=== PATIENT | female | born 1960 | race Caucasian/White ===

== ENCOUNTER 2018-04-13 15:00 | Inpatient (IN) | payer OTHER ==
[~2018-04-13] VITALS: Ht 165.1 cm; Wt 68.0 kg
[2018-04-13 15:52] LABS: BASOPHILS # (AUTO) 0.1 /CMM (0.0-0.2); BASOPHILS % (AUTO) 0.9 % (0.0-2.0); EOSINOPHILS % (AUTO) 2.1 % (0.0-6.0); HEMATOCRIT 46 % (33-45); HEMOGLOBIN 15.6 g/dL (11.5-14.8); LYMPHOCYTES # (AUTO) 2.4 /CMM (0.8-4.8); LYMPHOCYTES % (AUTO) 23.8 % (20.0-44.0); MEAN CORPUSCULAR HEMOGLOBIN 30 PG (26.0-33.0); MEAN CORPUSCULAR HGB CONC 34 g/dl (31.0-36.0); MEAN CORPUSCULAR VOLUME 88 fL (82-100); MONOCYTES # (AUTO) 0.9 /CMM (0.1-1.30); MONOCYTES % (AUTO) 8.8 % (2.0-12.0); NEUTROPHILS # (AUTO) 6.6 /CMM (1.8-8.9); NEUTROPHILS % (AUTO) 64.4 % (43.0-81.0); PLATELET COUNT (AUTO) 407 /CMM (150-450); RDW COEFFICIENT OF VARIATION 13.5 (11.5-15.0); RED BLOOD CELL COUNT(AUTO) 5.24 MIL/uL (4.0-5.2); WHITE BLOOD COUNT (AUTO) 10.2 K/uL (4.3-11.0)
[2018-04-13 15:54] LABS: APPEARANCE,URINE Slightly Cloudy (CLEAR); BILIRUBIN,URINE MODERATE (NEGATIVE); BLOOD, URINE Negative Ery/uL (NEGATIVE); COLOR,URINE Yellow (YELLOW); KETONES,URINE 80 (NEGATIVE); LEUKOCYTE ESTERASE ,URINE Negative (NEGATIVE); NITRITE, URINE Negative (NEGATIVE); PH,URINE 5.5 (5.0-8.0); PROTEIN,URINE Trace mg/dl (NEGATIVE); UGLUCOSE Negative (NEGATIVE)
[2018-04-13] MEDS ORDERED: OLAN2.5T3 PO (15:55)
[2018-04-13] MEDS ORDERED: ALPR0.255 PO (15:55)
[2018-04-13] MEDS ORDERED: ESCI10TA PO (15:55)
[2018-04-13] MEDS ORDERED: LORA0.5T PO (15:55)
[2018-04-13] MEDS ORDERED: DONE10TA44 PO (15:55)
[2018-04-13] MEDS ORDERED: MEMA10TA21 PO (15:55)
[2018-04-13 16:04] LABS: CALCIUM, SERUM 10.1 mg/dL (8.5-10.1); CARBON DIOXIDE 27 mmol/L (21-32); CHLORIDE 108 mmol/L (98-107); GLUCOSE 88 mg/dL (74-106); POTASSIUM 4.1 mmol/L (3.5-5.1); SODIUM SERUM 147 mmol/L (136-145); UREA NITROGEN, BLOOD 18 mg/dL (7-18)
[2018-04-13 16:09] LABS: ALANINE AMINOTRANSFERASE 47 U/L (12-78); ALBUMIN 3.9 g/dL (3.4-5.0); ALCOHOL, BLOOD < 3 mg/dL (0-0); ALKALINE PHOSPHATASE 94 U/L (46-116); ASPARTATE AMINOTRANSFERASE 21 U/L (15-37); BILIRUBIN,DIRECT 0.1 mg/dL (0.0-0.2); BILIRUBIN,TOTAL 0.5 mg/dL (0.2-1.0); TOTAL PROTEIN, SERUM 7.9 g/dL (6.4-8.2)
[2018-04-13 16:10] LABS: ACETAMINOPHEN < 2 ug/ml (10-30); SALICYLATE < 2.8 mg/dL (2.8-20.0)
[2018-04-13 16:18] LABS: BACTERIA,URINE Few /HPF (None Seen); RBC,URINE 0-2 /HPF (0-2); SQUAMOUS EPITHELIAL CELL,UR Few /HPF (None Seen); WBC,URINE 0-2 /HPF (0-3)
[2018-04-13] MEDS ORDERED: IV D5/0.45 NACL 1,000 ML IV ONE (16:30)
[2018-04-13] MEDS ORDERED: MAGNESIUM HYDROXIDE 30 ML UDC PO PRN (18:00)
[2018-04-13] MEDS ORDERED: MAG HYDROX/AL HYDROX/SIMETH 30 ML UDC PO PRN (18:00)
[2018-04-13] MEDS ORDERED: LORAZEPAM 0.5 MG TABLET PO PRN (18:00)
[2018-04-13] MEDS ORDERED: ACETAMINOPHEN 325 MG TABLET PO PRN (18:00)
[2018-04-13 18:05] VITALS: BP 141/65
[2018-04-13 18:31] VITALS: BP 141/65
[2018-04-13 20:00] VITALS: BP 139/98
[2018-04-14 08:00] VITALS: BP 126/71
[2018-04-14] MEDS ORDERED: DONE10TA44 PO (08:38)
[2018-04-14] MEDS ORDERED: MEMA10TA21 PO (08:38)
[2018-04-14] MEDS ORDERED: LORAZEPAM 1 MG TABLET PO PRN (11:00)
[2018-04-14 13:01] LABS: BASOPHILS # (AUTO) 0.1 /CMM (0.0-0.2); BASOPHILS % (AUTO) 0.9 % (0.0-2.0); HEMATOCRIT 44 % (33-45); HEMOGLOBIN 14.6 g/dL (11.5-14.8); LYMPHOCYTES # (AUTO) 1.8 /CMM (0.8-4.8); LYMPHOCYTES % (AUTO) 23.5 % (20.0-44.0); MEAN CORPUSCULAR HEMOGLOBIN 30 PG (26.0-33.0); MEAN CORPUSCULAR HGB CONC 33 g/dl (31.0-36.0); MEAN CORPUSCULAR VOLUME 90 fL (82-100); MONOCYTES # (AUTO) 0.6 /CMM (0.1-1.30); MONOCYTES % (AUTO) 7.4 % (2.0-12.0); NEUTROPHILS % (AUTO) 66.2 % (43.0-81.0); PLATELET COUNT (AUTO) 334 /CMM (150-450); RDW COEFFICIENT OF VARIATION 14.2 (11.5-15.0); RED BLOOD CELL COUNT(AUTO) 4.87 MIL/uL (4.0-5.2); WHITE BLOOD COUNT (AUTO) 7.6 K/uL (4.3-11.0)
[2018-04-14 13:16] LABS: ALBUMIN 3.9 g/dL (3.4-5.0); BILIRUBIN,TOTAL 0.5 mg/dL (0.2-1.0); CREATININE 0.8 mg/dL (0.6-1.3); MAGNESIUM 2.1 mg/dL (1.8-2.4); PHOSPHORUS 3.3 mg/dL (2.5-4.9); POTASSIUM 3.6 mmol/L (3.5-5.1); TOTAL PROTEIN, SERUM 7.6 g/dL (6.4-8.2)
[2018-04-14] MEDS: NITROFURANTOIN/NITROFURAN MAC 100 MG CAPSULE PO SCH ×2 (14:15→21:53)
[2018-04-14 16:32] VITALS: BP 127/67
[2018-04-14] MEDS: risperiDONE-M 0.5 MG TAB.RAPDIS PO SCH (16:37)
[2018-04-14] MEDS: BENZTROPINE MESYLATE (1 MG) 1 MG TABLET PO SCH (16:37)
[2018-04-14] MEDS: MEMANTINE HCL 5 MG TABLET PO SCH (16:37)
[2018-04-14] MEDS ORDERED: MEMANTINE HCL 5 MG TABLET PO SCH (17:00)
[2018-04-14 20:00] VITALS: BP 107/75
[2018-04-14] MEDS: TEMAZEPAM 7.5 MG CAPSULE PO PRN (21:53)
[2018-04-14] MEDS ORDERED: DONEPEZIL 5 MG TABLET PO SCH (22:00)
[2018-04-14] MEDS: DONEPEZIL 5 MG TABLET PO SCH (22:09)
[2018-04-15 08:00] VITALS: BP 103/75
[2018-04-15] MEDS: BENZTROPINE MESYLATE (1 MG) 1 MG TABLET PO SCH ×3 (10:11→20:31)
[2018-04-15] MEDS: NITROFURANTOIN/NITROFURAN MAC 100 MG CAPSULE PO SCH ×2 (10:11→20:37)
[2018-04-15] MEDS: risperiDONE-M 0.5 MG TAB.RAPDIS PO SCH ×4 (10:11→21:51)
[2018-04-15] MEDS: MEMANTINE HCL 5 MG TABLET PO SCH ×2 (10:12→16:32)
[2018-04-15] MEDS ORDERED: LORAZEPAM 1 MG TABLET PO PRN (13:00)
[2018-04-15 16:05] VITALS: BP 129/78
[2018-04-15 20:43] VITALS: BP 102/70
[2018-04-15] MEDS: DONEPEZIL 5 MG TABLET PO SCH (21:53)
[2018-04-16 08:00] VITALS: BP 108/52
[2018-04-16] MEDS: NITROFURANTOIN/NITROFURAN MAC 100 MG CAPSULE PO SCH ×2 (08:49→20:20)
[2018-04-16] MEDS: risperiDONE-M 0.5 MG TAB.RAPDIS PO SCH ×4 (08:49→20:20)
[2018-04-16] MEDS: BENZTROPINE MESYLATE (1 MG) 1 MG TABLET PO SCH ×4 (08:50→20:20)
[2018-04-16] MEDS: MEMANTINE HCL 5 MG TABLET PO SCH ×2 (08:50→16:35)
[2018-04-16 16:00] VITALS: BP 115/66
[2018-04-16] MEDS: DONEPEZIL 5 MG TABLET PO SCH (21:06)
[2018-04-16 21:07] VITALS: BP 103/68
[2018-04-16] MEDS: MIRTAZAPINE 15 MG TABLET PO SCH (21:07)
[2018-04-17 08:00] VITALS: BP 148/80
[2018-04-17] MEDS: risperiDONE-M 0.5 MG TAB.RAPDIS PO SCH ×3 (08:16→20:52)
[2018-04-17] MEDS: BENZTROPINE MESYLATE (1 MG) 1 MG TABLET PO SCH ×3 (08:16→20:52)
[2018-04-17] MEDS: MEMANTINE HCL 5 MG TABLET PO SCH ×2 (08:16→16:32)
[2018-04-17] MEDS: NITROFURANTOIN/NITROFURAN MAC 100 MG CAPSULE PO SCH ×2 (08:16→20:52)
[2018-04-17] MEDS: VENLAFAXINE XR 75 MG CAP.SR.24H PO SCH (08:32)
[2018-04-17 16:00] VITALS: BP 136/82
[2018-04-17 20:16] VITALS: BP 104/61
[2018-04-17] MEDS: DONEPEZIL 5 MG TABLET PO SCH (21:08)
[2018-04-17] MEDS: MIRTAZAPINE 15 MG TABLET PO SCH (21:08)
[2018-04-18 08:00] VITALS: BP 101/75
[2018-04-18] MEDS: risperiDONE-M 0.5 MG TAB.RAPDIS PO SCH ×3 (08:00→20:00)
[2018-04-18] MEDS: BENZTROPINE MESYLATE (1 MG) 1 MG TABLET PO SCH ×3 (08:00→20:00)
[2018-04-18] MEDS: MEMANTINE HCL 5 MG TABLET PO SCH ×3 (09:10→17:15)
[2018-04-18] MEDS: VENLAFAXINE XR 75 MG CAP.SR.24H PO SCH (09:11)
[2018-04-18] MEDS: NITROFURANTOIN/NITROFURAN MAC 100 MG CAPSULE PO SCH ×2 (09:11→21:00)
[2018-04-18 15:38] LABS: ALBUMIN 4.3 g/dL (3.4-5.0); BILIRUBIN,TOTAL 0.7 mg/dL (0.2-1.0); CALCIUM, SERUM 10.1 mg/dL (8.5-10.1); CREATININE 1.1 mg/dL (0.6-1.3); POTASSIUM 4.2 mmol/L (3.5-5.1); TOTAL PROTEIN, SERUM 8.1 g/dL (6.4-8.2)
[2018-04-18 15:42] LABS: BASOPHILS % (AUTO) 0.3 % (0.0-2.0); EOSINOPHILS % (AUTO) 2.1 % (0.0-6.0); HEMATOCRIT 48 % (33-45); HEMOGLOBIN 15.7 g/dL (11.5-14.8); LYMPHOCYTES # (AUTO) 2.3 /CMM (0.8-4.8); LYMPHOCYTES % (AUTO) 24.5 % (20.0-44.0); MEAN CORPUSCULAR HEMOGLOBIN 30 PG (26.0-33.0); MEAN CORPUSCULAR HGB CONC 33 g/dl (31.0-36.0); MEAN CORPUSCULAR VOLUME 91 fL (82-100); MONOCYTES # (AUTO) 0.8 /CMM (0.1-1.30); MONOCYTES % (AUTO) 8.5 % (2.0-12.0); NEUTROPHILS # (AUTO) 6.1 /CMM (1.8-8.9); NEUTROPHILS % (AUTO) 64.6 % (43.0-81.0); PLATELET COUNT (AUTO) 349 /CMM (150-450); RDW COEFFICIENT OF VARIATION 14.1 (11.5-15.0); RED BLOOD CELL COUNT(AUTO) 5.31 MIL/uL (4.0-5.2); WHITE BLOOD COUNT (AUTO) 9.5 K/uL (4.3-11.0)
[2018-04-18 17:07] VITALS: BP 100/65
[2018-04-18 20:44] VITALS: BP 96/53
[2018-04-18] MEDS: DONEPEZIL 5 MG TABLET PO SCH (22:00)
[2018-04-18] MEDS: MIRTAZAPINE 15 MG TABLET PO SCH (22:00)
[2018-04-19] MEDS: risperiDONE-M 0.5 MG TAB.RAPDIS PO SCH ×3 (08:00→21:41)
[2018-04-19] MEDS: BENZTROPINE MESYLATE (1 MG) 1 MG TABLET PO SCH ×3 (08:00→21:41)
[2018-04-19] MEDS: MEMANTINE HCL 5 MG TABLET PO SCH ×2 (09:00→17:00)
[2018-04-19] MEDS: NITROFURANTOIN/NITROFURAN MAC 100 MG CAPSULE PO SCH ×2 (09:00→21:41)
[2018-04-19] MEDS: VENLAFAXINE XR 75 MG CAP.SR.24H PO SCH (09:00)
[2018-04-19 16:00] VITALS: BP 111/60
[2018-04-19] MEDS: MIRTAZAPINE 15 MG TABLET PO SCH (21:41)
[2018-04-19] MEDS: TEMAZEPAM 7.5 MG CAPSULE PO PRN (21:41)
[2018-04-19] MEDS: DONEPEZIL 5 MG TABLET PO SCH (21:41)
[2018-04-20] MEDS: BENZTROPINE MESYLATE (1 MG) 1 MG TABLET PO SCH ×3 (08:54→20:00)
[2018-04-20] MEDS: MEMANTINE HCL 5 MG TABLET PO SCH ×3 (08:55→17:00)
[2018-04-20] MEDS: risperiDONE-M 0.5 MG TAB.RAPDIS PO SCH ×3 (08:55→20:00)
[2018-04-20] MEDS: NITROFURANTOIN/NITROFURAN MAC 100 MG CAPSULE PO SCH (08:55)
[2018-04-20] MEDS: VENLAFAXINE XR 75 MG CAP.SR.24H PO SCH (08:55)
[2018-04-20 16:00] VITALS: BP 108/74
[2018-04-20] MEDS: DONEPEZIL 5 MG TABLET PO SCH (22:00)
[2018-04-20] MEDS: MIRTAZAPINE 15 MG TABLET PO SCH (22:00)
[2018-04-21 08:00] VITALS: BP 119/69
[2018-04-21] MEDS: risperiDONE-M 0.5 MG TAB.RAPDIS PO SCH ×3 (08:00→20:00)
[2018-04-21] MEDS: BENZTROPINE MESYLATE (1 MG) 1 MG TABLET PO SCH ×3 (08:00→20:00)
[2018-04-21] MEDS: MEMANTINE HCL 5 MG TABLET PO SCH ×2 (09:00→17:00)
[2018-04-21] MEDS: VENLAFAXINE XR 75 MG CAP.SR.24H PO SCH (09:00)
[2018-04-21 16:00] VITALS: BP 125/81
[2018-04-21 20:00] VITALS: BP 104/51
[2018-04-21] MEDS: DONEPEZIL 5 MG TABLET PO SCH (21:41)
[2018-04-21] MEDS: MIRTAZAPINE 15 MG TABLET PO SCH (21:42)
[2018-04-22 08:00] VITALS: BP 107/72
[2018-04-22] MEDS: BENZTROPINE MESYLATE (1 MG) 1 MG TABLET PO SCH ×3 (08:41→20:00)
[2018-04-22] MEDS: VENLAFAXINE XR 75 MG CAP.SR.24H PO SCH (08:41)
[2018-04-22] MEDS: MEMANTINE HCL 5 MG TABLET PO SCH ×2 (08:41→17:13)
[2018-04-22] MEDS: risperiDONE-M 0.5 MG TAB.RAPDIS PO SCH ×3 (08:41→20:00)
[2018-04-22 16:00] VITALS: BP 124/73
[2018-04-22] MEDS: DONEPEZIL 5 MG TABLET PO SCH ×2 (21:30→22:00)
[2018-04-22] MEDS: MIRTAZAPINE 15 MG TABLET PO SCH (21:31)
[2018-04-23 07:06] LABS: BASOPHILS % (AUTO) 0.4 % (0.0-2.0); EOSINOPHILS % (AUTO) 1.8 % (0.0-6.0); HEMATOCRIT 45 % (33-45); HEMOGLOBIN 14.9 g/dL (11.5-14.8); LYMPHOCYTES % (AUTO) 21.5 % (20.0-44.0); MEAN CORPUSCULAR HEMOGLOBIN 30 PG (26.0-33.0); MEAN CORPUSCULAR HGB CONC 33 g/dl (31.0-36.0); MEAN CORPUSCULAR VOLUME 91 fL (82-100); MONOCYTES # (AUTO) 0.8 /CMM (0.1-1.30); MONOCYTES % (AUTO) 8.6 % (2.0-12.0); NEUTROPHILS # (AUTO) 6.3 /CMM (1.8-8.9); NEUTROPHILS % (AUTO) 67.7 % (43.0-81.0); PLATELET COUNT (AUTO) 303 /CMM (150-450); RED BLOOD CELL COUNT(AUTO) 5.01 MIL/uL (4.0-5.2); WHITE BLOOD COUNT (AUTO) 9.3 K/uL (4.3-11.0)
[2018-04-23 07:16] LABS: ALBUMIN 4.1 g/dL (3.4-5.0); BILIRUBIN,TOTAL 0.7 mg/dL (0.2-1.0); CALCIUM, SERUM 9.3 mg/dL (8.5-10.1); CREATININE 0.9 mg/dL (0.6-1.3); MAGNESIUM 2.3 mg/dL (1.8-2.4); PHOSPHORUS 3.5 mg/dL (2.5-4.9); TOTAL PROTEIN, SERUM 8.1 g/dL (6.4-8.2)
[2018-04-23 08:00] VITALS: BP 100/66
[2018-04-23] MEDS: BENZTROPINE MESYLATE (1 MG) 1 MG TABLET PO SCH ×2 (08:00→13:00)
[2018-04-23] MEDS: risperiDONE-M 0.5 MG TAB.RAPDIS PO SCH ×2 (08:00→13:00)
[2018-04-23] MEDS: VENLAFAXINE XR 75 MG CAP.SR.24H PO SCH (08:42)
[2018-04-23] MEDS: MEMANTINE HCL 5 MG TABLET PO SCH (08:43)
== END 2018-04-23 14:06 | disposition short-term general hospital (02) | DRG 881 ==
LOC: ER 15:01 → GPS 17:14
PROVIDERS: ADMIT Nurse Practitioner Acute Care; ATTEND Nurse Practitioner Acute Care
DX: F32.9 Major depressive disorder, single episode, unspecified (principal); F06.1 Catatonic disorder due to known physiological condition; N39.0 Urinary tract infection, site not specified; E87.0 Hyperosmolality and hypernatremia; F29 Unspecified psychosis not due to a substance or known physiological condition; E86.0 Dehydration; Z79.899 Other long term (current) drug therapy; R62.7 Adult failure to thrive; G31.84 Mild cognitive impairment of uncertain or unknown etiology
CPT/HCPCS: 36415; 80048-TC; 80053-TC; 80076-TC; 80305; 81000-TC; 83735-TC; 84100-TC; 85025-TC; 87081-TC; 87086-TC; A4606; G0480; J3490; Z7610